=== PATIENT | male | born 1970 | race Caucasian/White ===

== ENCOUNTER → 2020-12-13 | Day surgery (SDC) | payer OTHER ==
[~2020-12-13] VITALS: Ht 182.9 cm; Wt 68.0 kg
[~2020-12-13] MED LIST: ACETAMINOPHEN500 M1 PO; COLACE100 MG PO; DAILY VALUE1 EACH PO; MOTRIN600 MG PO; NORCO 5-325 TA1 EACH PO; OXY-IR 5MG5 MG PO
== END | disposition home or self-care (01) ==
LOC: FAS 09:59
DX: K64.8 Other hemorrhoids (principal); K64.4 Residual hemorrhoidal skin tags; K40.90 Unilateral inguinal hernia, without obstruction or gangrene, not specified as recurrent; D17.79 Benign lipomatous neoplasm of other sites; D64.9 Anemia, unspecified; E78.5 Hyperlipidemia, unspecified; F17.210 Nicotine dependence, cigarettes, uncomplicated; E55.9 Vitamin D deficiency, unspecified
CPT/HCPCS: J2704; J7120

== ENCOUNTER → 2020-12-30 | Day surgery (SDC) | payer OTHER ==
[~2020-12-30] VITALS: Ht 182.9 cm; Wt 68.0 kg
== END | disposition home or self-care (01) ==
LOC: FAS 09:05
DX: K40.90 Unilateral inguinal hernia, without obstruction or gangrene, not specified as recurrent (principal); D17.24 Benign lipomatous neoplasm of skin and subcutaneous tissue of left leg; F17.210 Nicotine dependence, cigarettes, uncomplicated; K64.8 Other hemorrhoids; K64.4 Residual hemorrhoidal skin tags
CPT/HCPCS: J0690; J1644; J1885; J2250; J2405; J2704; J3010; J7120

== ENCOUNTER → 2022-02-23 | Day surgery (SDC) | payer OTHER ==
[~2022-02-23] VITALS: Ht 175.3 cm; Wt 63.5 kg
[~2022-02-23] MED LIST changes: +ALEVE220 M1 PO; +PROAIR HFA8.5 GM INH
== END | disposition home or self-care (01) ==
LOC: FAS 10:49
DX: G89.29 Other chronic pain (principal); R10.32 Left lower quadrant pain; J44.9 Chronic obstructive pulmonary disease, unspecified; F17.210 Nicotine dependence, cigarettes, uncomplicated; E78.5 Hyperlipidemia, unspecified; Z79.899 Other long term (current) drug therapy
CPT/HCPCS: 93005; J1040; J2250; J2274; J2704; J7120